=== PATIENT | female | born 1990 | race Caucasian/White ===

== ENCOUNTER 2020-06-08 00:05 | Emergency (ER) | payer SELFPAY ==
[2020-06-08] MEDS ORDERED: LIDOCAINE 2% INJ (20 MG/ML) 20 ML MDV ONE (00:34)
[2020-06-08] MEDS ORDERED: LIDOCAINE 2% INJ (20 MG/ML) 20 ML MDV INJ ONE (00:45)
--- NOTE | 2020-06-08 01:07 | ER Document Report ---
ED General - General Chief Complaint: Laceration Stated Complaint: LACERATION/ETOH Time Seen by Provider: 06/08/20 00:18 Mode of Arrival: Medic Information source: Patient Notes: 29-year-old woman presents to the emergency department with a history of a fall in the bathroom while intoxicated she sustained a laceration to the lateral aspect of the right thigh. She denies any other associated injuries. He states that her tetanus is up-to-date. The patient works as a nursing home assistant administrator and is otherwise healthy. No diabetes mellitus vascular difficulties. - Related Data Allergies/Adverse Reactions: Penicillins Allergy (Severe, Verified 06/08/20 00:21) Difficulty breathing Past Medical History - Social History Smoking Status: Never Smoker Chew tobacco use (# tins/day): No Frequency of alcohol use: Social Drug Abuse: None Family History: Reviewed & Not Pertinent Patient has homicidal ideation: No Review of Systems - Review of Systems Notes: Constitutional: Negative for fever. HENT: Negative for sore throat. Eyes: Negative for visual changes. Cardiovascular: Negative for chest pain. Respiratory: Negative for shortness of breath. Gastrointestinal: Negative for abdominal pain, vomiting or diarrhea. Genitourinary: Negative for dysuria. Musculoskeletal: Negative for back pain. Skin: See HPI Neurological: Negative for headaches, weakness or numbness. 10 point ROS negative except as marked above and in HPI. Physical Exam - Vital signs Vitals: Temp 97.7 F 06/08/20 00:06 - Notes Notes: PHYSICAL EXAMINATION: Physical Exam: General: Well-nourished well-developed 29-year-old woman in no acute distress HEENT: NC/AT, pupils equal round and reactive to light, MM moist,nares clear, oropharynx clear, airway patent Neck: supple, no adenopathy, no masses. Good range of motion Lungs: clear, no wheezing, no rales no rhonchi CVS: Regular rate and rhythm no murmur gallop or rub Abdomen: Soft, active, nontender, no masses, no hepatosplenomegaly Ext: No edema, clubbing or cyanosis. Neuro: Alert and responsive, moving all 4 extremities on command, cranial nerves intact, no focal findings Skin: 16 cm laceration to the lateral mid thigh into the fatty tissue, no muscle exposure minimal bleeding, neurovascular intact Course - Re-evaluation Re-evalutation: 06/08/20 01:13 Patient 16 cm laceration was closed using maki. The alignment of the wound was good and approximated skin to skin 24 maki were used to close the wound. Sterile dressing applied, Allan wrap applied over the dressing. Patient tolerated the procedure well and I have instructed her to change dressing tomorrow evening. She is given Zitromax 500 mg in the emergency department and a prescription for a 10-day course of antibiotics. 06/08/20 01:25 - Vital Signs Vital signs: Temp Pulse Resp BP Pulse Ox 97.7 F 107 H 14 130/73 H 100 06/08/20 00:26 06/08/20 01:44 06/08/20 01:44 06/08/20 01:44 06/08/20 01:44 Procedures - Laceration/Wound Repair Right Lateral Thigh Time completed: 01:05 Wound length (cm): 16 Wound's Depth, Shape: Other - Deep laceration into the subdermal fatty tissue Laceration pre-procedure: Sterile PPE donned, Chloraprep applied, Sterile drapes applied Anesthetic type: 2% Lidocaine Volume Anesthetic (mLs): 10 Wound explored: Clean, No foreign body removed Irrigated w/ Saline (mLs): 25 Wound Repaired With: Maki - 24 maki were used to close the wound, good alignment achieved. Post-procedure wound care: Sterile dressing applied, Other - Allan wrap is applied over the wound Post-procedure NV exam normal: Yes Complications: No Discharge - Discharge Clinical Impression: Laceration of right thigh Qualifiers: Encounter type: initial encounter Qualified Code(s): S71.111A - Laceration without foreign body, right thigh, initial encounter Condition: Good Disposition: HOME, SELF-CARE Instructions: Laceration Care ([facility]), Prophylactic Antibiotic ([facility]) Additional Instructions: You were seen in the emergency department tonight with laceration to the right thigh area. Wound was repaired using maki. We will leave the maki in place for the next 10 to 14 days. You may return to the emergency department for staple removal if you do not have a primary care doctor who is capable of removing the maki. Please take the antibiotics as prescribed and change the dressing daily. If you have any difficulties or concerns you may return to the emergency department for recheck of the wound. HOME CARE INSTRUCTIONS & INFORMATION: Thank you for choosing us for your medical needs. We hope you're satisfied with the care you received. After you leave, you must properly care for your problem and, at the same time, observe its progress. Any condition can change. Some illnesses can change rapidly over hours or days. If your condition worsens, return to the Emergency Department or see your physician promptly. ABOUT YOUR X-RAYS AND EKG'S: If you had an EKG or X-rays taken, they have been read by the Emergency Physician. The X-rays and EKG's will also be read by a Radiologist or Master Merchandiser within 24 hours. If discrepancies are noted, you will be notified by telephone. Please be certain the ED has a correct telephone number & address where you can be reached. Also, realize that some fractures or abnormalities do not show up on initial X-rays. If your symptoms continue, see your physician. ABOUT YOUR LABORATORY TEST: If you had laboratory tests, the results have been reviewed by the Emergency Physician. Some test results (for example cultures) may not be available for several days. You will be contacted if any test result shows you need additional treatment. Please be certain the ED has a correct telephone number and address where you can be reached. ABOUT YOUR MEDICATIONS: You will receive instructions on how to take your medicine on the prescription label you receive. Additional information may be provided by the Pharmacy. If you have questions afterwards, call the ED for clarification or further instructions. Some prescribed medications may cause drowsiness. Do not perform tasks such as driving a car or operating machinery without consulting your Pharmacist. If you feel you need a refill of pain medication, your condition will need re-evaluation. Please do not call for a refill of any medication. ABOUT YOUR SIGNATURE: Signature of this document acknowledges to followin. Understanding that you received emergency treatment and that you may be released before al medical problems are known or treated. Please be certain the ED has a correct phone number & address where you can be reached. 2. Acknowledgement that you will arrange for follow-up care as recommended. 3. Authorization for the Emergency Physician to provide information to your follow-up Physician in order to maximize your care. AT ANY TIME, IF YOUR SYMPTOMS CHANGE SIGNIFICANTLY OR WORSEN OR YOU DEVELOP NEW SYMPTOMS, RETURN TO THE EMERGENCY DEPARTMENT IMMEDIATELY FOR RE-EVALUATION. OUR GOAL IS TO PROVIDE EXCELLENT MEDICAL CARE! WE HOPE THAT WE HAVE MET YOUR EXPECTATIONS DURING YOUR EMERGENCY DEPARTMENT VISIT AND THAT YOU FEEL YOU HAVE RECEIVED EXCELLENT CARE! Prescriptions: Azithromycin [Zithromax 250 mg Tablet] 500 mg PO DAILY #10 tab
[2020-06-08] MEDS ORDERED: AZITHROMYCIN 250 MG TABLET PO ONE (01:21)
[2020-06-08 01:56] VITALS: BP 130/73
== END 2020-06-08 01:56 | disposition home or self-care (01) ==
LOC: ER 00:05
DX: S71.111A Laceration without foreign body, right thigh, initial encounter (principal); W19.XXXA Unspecified fall, initial encounter; Y92.002 Bathroom of unspecified non-institutional (private) residence as the place of occurrence of the external cause; Z88.0 Allergy status to penicillin
CPT/HCPCS: 12005; 99283; J3490